=== PATIENT | male | born 1985 | race Caucasian/White ===

== ENCOUNTER 2020-10-01 08:42 | Emergency (ER) | payer OTHER, SELFPAY ==
--- NOTE | ~2020-10-01 | XR_ITS ---
EXAMINATION: XR chest 2V EXAM DATE: 10/01/2020 09:22 INDICATION: Cough, wheezing. TECHNIQUE: Frontal and lateral projections of the chest obtained and reviewed. There is no prior oneida dy for comparison. FINDINGS: Dense consolidation involving the entire left lower lobe, probably bacterial pneumonia. Re commend follow-up exam after treatment. Cardiomediastinal silhouette is normal. There is no pneumotho rax suspected. There are no pleural effusions. IMPRESSION: Left lower lobar consolidation likely bacterial pneumonia. Recommend follow-up. Reviewed, dictated and finalized at location A. IMPRESSION: Left lower lobar consolidation likely bacterial pneumonia. Recommen d follow-up.
[2020-10-01 08:54] VITALS: BP 117/73; PULSE 93; RESP 20; TEMP 37.6; O2SAT 95
--- NOTE | 2020-10-01 09:40 | ED.URI ---
HPI - URI/Sore Throat General Chief Complaint: Upper Respiratory Infection Stated Complaint: Nausea Time Seen by Provider: 10/01/20 09:20 Source: patient, RN notes reviewed and old records reviewed Mode of arrival: ambulatory Limitations: no limitations History of Present Illness HPI Narrative: 35 year old male presents to doctors hospital care with complaints of cough, headache, sinus pressure, fevers up to 101F with body aches for the past 4 days, Patient states that he has had 3 days of nausea vomiting and diarrhea with emesis stated x4 times today. Patient admits to cough which is productive of greenish yellow sputum admits to some dyspnea with exertion. Patient states that he feels awful, has not had Influenza or Covid immunizations. MD elicited complaint: fever, cough, rhinorrhea, nasal congestion, sinus pain and other (headache) Pertinent past history: other (tobacco abuse) Consistency: progressively worsening Description of mucous: yellow and green Exacerbating factors: exertion and changing head position Relieving factors: nothing Associated symptoms: fever, chills, myalgias, headache, rhinorrhea, nasal congestion, cough and shortness of breath Treatments prior to arrival: acetaminophen, cold medicine (Dayquil and Nyquil) and other (sudafed) Related Data Allergies Allergy/AdvReac Type Severity Reaction Status Date / Time amoxicillin Allergy Severe Swelling Verified 10/01/20 09:28 of Lip/Tongue/Throat Review of Systems Review of Systems: Narrative: CONSTITUTIONAL: Positive for fever, chills, or sweats. EYES: Denies visual changes, redness, or discharge. ENT:Positive rhinorrhea, congestion,sinus pressure, no sore throat, or otalgia. CARDIOVASCULAR: Denies chest pain, palpitations, or edema. RESPIRATORY:Positive productive cough with dyspnea with exertion GASTROINTESTINAL: Denies abdominal pain,positive for nausea, vomiting, or diarrhea. GENITOURINARY: Denies dysuria or hematuria.general body aches SKIN: Denies rash or itching. MUSCULOSKELETAL: Denies back pain, joint pain, NEUROLOGIC:Positive headache,no numbness, or weakness. PSYCHIATRIC: Denies anxiety or depression. All systems reviewed & are unremarkable except as noted in HPI and below PMFSH Past Medical History Medical History (Updated 10/02/20 @ 21:13 by Sarita Castillo NP) History of irregular heartbeat Hypertension Lip lesion removal from upper lip plastics Family History Family History (Updated 10/02/20 @ 21:01 by Sarita Castillo NP) Other No significant family history Social History Social History (Updated 10/02/20 @ 20:57 by Sarita Castillo NP) Smoking packs per day: 0.5 Smoking cigarettes per day: 10.0 Years smoked: 20 Smoking pack-years: 10.00 Smoking status: Current every day smoker Alcohol intake: current Alcohol use details: social Substance use: never Living arrangements: with family Gender identity (if verbalized by the patient): Male Comments At time of signature, agree with nursing past medical, surgical, social and family history. There is no relevant family history pertinent to the presenting complaint Exam Narrative: Exam Narrative: GENERAL Ill-appearing, well-nourished, and in no acute distress. HEAD: Normocephalic, atraumatic. EYES: PERRLA and EOMI. ENT: Nares red swollen with yellow rhinorrhea no epistaxis. Mucous membranes moist.TM's normal with dull light reflex, throat red with no lesions or exudates, no tonsil enlargement, post nasal drainage noted NECK: Supple. no lymphadenopathy CHEST: crackles to left lung nagy on auscultation. No acute respiratory distress.VELASQUEZ, cough productive SAO2 95% on room air. HEART: Regular rate and rhythm. No murmur heard. Normal peripheral pulses. ABDOMEN: Soft, nontender, nondistended, normal active bowel sounds.episodes of nausea with vomiting and diarrhea EXTREMITIES: Normal range of motion. No edema. SKIN: Warm, dry, no rash. NEURO: No focal deficits. Tania
== END 2020-10-01 10:10 | disposition home or self-care (01) ==
PROVIDERS: Emergency Provider Registered Nurse
DX: J18.1 Lobar pneumonia, unspecified organism (principal); Z20.822 Contact with and (suspected) exposure to COVID-19; F17.210 Nicotine dependence, cigarettes, uncomplicated; I10 Essential (primary) hypertension
CPT/HCPCS: 71046; 87426; 99213; C9803; G0463